=== PATIENT | female | born 1970 | race American Indian/Alaskan Native ===

== ENCOUNTER 2017-01-22 11:28 | Emergency (ER) | payer OTHER ==
[2017-01-22 11:52] VITALS: BP 172/89
[2017-01-22 12:50] LABS: Anion Gap 20 mmol/L; BUN/Creatinine Ratio 9; Blood Urea Nitrogen 6 mg/dL (7-17); Calcium 8.9 mg/dL (8.4-10.2); Carbon Dioxide 24 mmol/L (22-30); Chloride 100.2 mmol/L (98-107); Glucose 97 mg/dL (65-100); Potassium 4.3 mmol/L (3.6-5.0); Sodium 140 mmol/L (137-145)
[2017-01-22 12:52] LABS: Basophils % (Auto) 1.4 % (0.0-1.8); Eosinophils % (Auto) 0.7 % (0.0-4.3); Hemoglobin 10.5 gm/dl (10.1-14.3); Mean Corpuscular HGB Conc 31 % (30-34); Platelet Count 333 K/mm3 (140-440); Red Blood Count 5.68 M/mm3 (3.65-5.03); White Blood Count 8.3 K/mm3 (4.5-11.0)
[2017-01-22 12:55] LABS: Mean Corpuscular Hemoglobin 18 pg (28-32); Mean Corpuscular Volume 60 fl (79-97); Red Cell Distribution Width 20.6 % (13.2-15.2)
[2017-01-22] MEDS ORDERED: LIDOCAINE VISCOUS 2% PO ONE (14:41)
[2017-01-22] MEDS ORDERED: ALUM-MAG HYDROX-SIMETH 200-200-20MG/5ML PO ONE (14:41)
--- NOTE | 2017-01-22 14:47 | Emergency Department Report ---
ED Chest Pain HPI - General Chief Complaint: Chest Pain Stated Complaint: CHEST PAIN Time Seen by Provider: 01/22/17 14:17 Source: patient Mode of arrival: Ambulatory Limitations: No Limitations - History of Present Illness Initial Comments: 46 YO FEMALE WITH C/O 4 DAYS OF CHEST PRESSURE AND FEELING OF GAS IN HER CHEST. SHE HAD A NEGATIVE CHEMICAL STRESS TEST A MONTH AGO AND A NEGATIVE ECHOCARDIOGRAM A MONTH AGO WELL. HER CHEST DISCOMFORT IS A PRESSURE FEELING AND NOT ASSOCIATED WITH ANY NAUSEA ,VOMITING BUT WITH THE FEELING OF GAS IN HER STOMACH. MD Complaint: chest pain -: days(s) (4) Onset: during rest Pain Radiation: none - Related Data Previous Rx's Medication Instructions Recorded Last Taken Type Omeprazole Magnesium [PriLOSEC Otc] 20 mg PO QDAY #10 tablet. 01/22/17 Unknown Rx Ranitidine HCl [Heartburn Relief] 150 mg PO BID #30 tablet 01/22/17 Unknown Rx Allergies Allergy/AdvReac Type Severity Reaction Status Date / Time No Known Allergies Allergy Unverified 01/18/16 06:51 Heart Score - HEART Score History: Slightly suspicious EKG: Normal Age: 45-65 Risk factors: No known risk factors Troponin: < normal limit HEART Score: 1 ED Review of Systems ROS: Stated complaint: CHEST PAIN Other details as noted in HPI ED Past Medical Hx - Past Medical History Previous Medical History?: Yes Additional medical history: Nerve damage left foot , Herniated disc, Right pelvic pain and right thigh pain, Lower backpain, Vaginal delivery x 3 - Surgical History Past Surgical History?: Yes Additional Surgical History: Nerve stimulator insertion, Left foot surgery, Tubaligation - Social History Smoking Status: Never Smoker Substance Use Type: Prescribed - Medications Home Medications: Home Medications Medication Instructions Recorded Confirmed Last Taken Type Omeprazole Magnesium [PriLOSEC Otc] 20 mg PO QDAY #10 tablet. 01/22/17 Unknown Rx Ranitidine HCl [Heartburn Relief] 150 mg PO BID #30 tablet 01/22/17 Unknown Rx ED Physical Exam - General Limitations: No Limitations ED Course Vital Signs 01/22/17 11:46 Temperature 98.4 F Pulse Rate 98 H Respiratory 20 Rate Blood Pressure 172/89 O2 Sat by Pulse 99 Oximetry CASSIE score - Cassie Score Age > 65: (0) No Aspirin use within the Past 7 Days: (0) No 3 or more CAD Risk Factors: (0) No 2 or more Angina events in past 24 hrs: (0) No Known CAD with more than 50% Stenosis: (0) No ED Medical Decision Making - Lab Data Result diagrams: 01/22/17 12:12 01/22/17 12:12 - EKG Data EKG shows normal: sinus rhythm, axis, intervals - EKG Data Interpretation: nonspecific ST-T wave rhys 01/22/17 15:32 EKG #2:NO CHANGES FROM FIRST - Radiology Data Radiology results: report reviewed, image reviewed (CXR;HYPERINFLATED) - Medical Decision Making PT HAD A NEGATIVE NUCLEAR STRESS TEST TC-99M/STRESS AND NEGATIVE ECHOCARDIOGRAM ON 12/05/2016 BY [facility] [employer]. GIVEN HER CLOSED FOLLOW UP WITH CARDIOLOGY AND HER PCP , AND NEGATIVE CARDIAC ENZYME HERE I DO NOT THINK THIS IS CARDIAC IN NATURE. I WILL DO A CTA OF CHEST TO LOOK AT HER AORTA AND CHEDCK FOR PE AND IF THIS IS NEGATIVE I WILL D/C HER HOME TO FOLLOW UP WITH HER DR. HER CTA OF CHEST IS NEGATIVE AND THUS I WILL SEND HER HOME . HER DR CAN REFER TO GI FOR ENDOSCOPY AND FOLLOW UP THE H.PYLORI STUDY RESULT. I DO NOT HAVE A REASON TO ADMIT HER AT THIS TIME - Differential Diagnosis GERD, H.PYLORI, REACTIVE AIRWAY DISEASE,ESOPHAGEAL SPASMS Critical care attestation.: If time is entered above; I have spent that time in minutes in the direct care of this critically ill patient, excluding procedure time. ED Disposition Clinical Impression: Chest pressure Disposition: DC-01 TO HOME OR SELFCARE Is pt being admited?: No Does the pt Need Aspirin: No Condition: Stable Instructions: Chest Pain (ED), Gastroesophageal Reflux Disease (ED) Additional Instructions: PLEASE FOLLOW UP WITH YOUR DR TOMORROW FOR REFERRAL TO THE [facility] FOR UPPER ENDOSCOPY AND BIOPSY. RETURN TO THE EMERGENCY DEPARTMENT FOR ANY INCREASED CHEST PRESSURE OR DISCOMFORT, NAUSEA,VOMITING , FEVER OR CHILLS OR FOR ANY CONCERNS. FOLLOW UP WITH YOUR DR IN 2 DAYS Prescriptions: Omeprazole Magnesium [PriLOSEC Otc] 20 mg PO QDAY #10 tablet. Ranitidine HCl [Heartburn Relief] 150 mg PO BID #30 tablet Referrals: CAITY GOMEZ MD [Primary Care Provider] - 3-5 Days Time of Disposition: 17:34
[2017-01-22] MEDS ORDERED: NACL 0.9% 1000 ML 1,000 ML IV ONE (15:10)
[2017-01-22 15:29] LABS: Creatine Kinase 75 units/L (30-135)
[2017-01-22 15:46] LABS: Creatine Kinase MB < 1.0 ng/mL (0.0-4.0)
--- NOTE | 2017-01-22 16:44 | Cat Scan Report ---
FINAL REPORT EXAM: CT ANGIO CHEST HISTORY: CHEST PAIN,LOOK AT AORTA TECHNIQUE: Enhanced CT of the chest at 1.25 mm axial intervals following a pulmonary embolism protocol. Coronal and sagittal imaging were also obtained. Coronal oblique MIP projections were obtained. Contrast: 75 ml of Isovue 300 given IV. PRIORS: None. FINDINGS: There is no evidence for pulmonary embolism in the main pulmonary artery, right and left pulmonary arteries or their major distributions. However, CT does not exclude distal pulmonary emboli. Otherwise, the lung parenchyma are expanded and clear with no evidence for parenchymal nodules, infiltrates, congestion, or pleural effusion. There is no evidence for mediastinal, hilar, or axillary adenopathy. Cardiovascular structures are within normal limits. No evidence for ventricular chamber enlargement is seen. Images through the lung bases include the upper abdomen which show no abnormalities of the visualized abdominal viscera. Bony structures demonstrate no focal abnormalities. There is spinal cord stimulator leads in place within the spinal canal posteriorly at T9. IMPRESSION: No evidence for pulmonary embolism. Negative CT of the chest.
--- NOTE | 2017-01-22 18:29 | XRay Report ---
FINAL REPORT PROCEDURE: XR CHEST ROUTINE 2V TECHNIQUE: PA and lateral chest radiographs were obtained. CPT 42544 HISTORY: Chest pain. COMPARISON: CTA of the chest dated 01/22/2017. FINDINGS: Heart: Normal. Mediastinum/Vessels: Normal. Lungs/Pleural space: Normal. Bony thorax: No acute osseous abnormality. Other: Intrathecal lead tips at approximately the T9/10 level. IMPRESSION: No radiographic evidence of acute cardiopulmonary disease.
== END 2017-01-22 17:57 | disposition home or self-care (01) ==
LOC: ED 11:28
DX: R07.89 Other chest pain (principal)
CPT/HCPCS: 36415; 71020; 71275; 80048; 82550; 82553; 84484; 85025; 85379; 93005; 93010; 96360; 99285; J7030; Q9967

== ENCOUNTER 2017-05-02 14:15 | Outpatient (CLI) | payer OTHER ==
--- NOTE | 2017-05-02 16:17 | Mammography Report ---
BILATERAL DIGITAL SCREENING MAMMOGRAM with CAD: 05/02/17 14:15:00 CLINICAL: Routine screening. COMPARISON:01/18/16 FINDINGS: The breasts are heterogeneously dense, which may obscure small masses. No mass, architectural distortion or suspicious calcifications. IMPRESSION: No mammographic evidence of malignancy. BI-RADS CATEGORY: 1 - - Negative RECOMMENDATION: Routine mammographic screening in one year. COMMENT: Patient follow-up letters are generated by our [employer] application.
== END 2017-05-02 14:16 | disposition home or self-care (01) ==
LOC: MAMMO 14:15
PROVIDERS: ATTEND Family Medicine Adult Medicine
DX: Z12.31 Encounter for screening mammogram for malignant neoplasm of breast (principal)
CPT/HCPCS: 77067